=== PATIENT | female | born 2000 | race Caucasian/White ===

== ENCOUNTER → 2024-06-08 | Outpatient (CLI) | payer OTHER | LOC: M OUTALCOH 07:46 | PROVIDERS: ATTEND Psychiatry & Neurology Psychiatry | DX: F10.10 Alcohol abuse, uncomplicated (principal); Z72.0 Tobacco use ==

== ENCOUNTER 2024-06-22 16:00 | Outpatient (RCR) | payer OTHER | END 2024-07-04 | LOC: M OUTALCOH 16:00 | PROVIDERS: ATTEND Psychiatry & Neurology Psychiatry | DX: F10.10 Alcohol abuse, uncomplicated (principal); Z72.0 Tobacco use ==

== ENCOUNTER 2024-08-03 16:00 | Outpatient (RCR) | payer OTHER | END 2024-08-04 | LOC: M OUTALCOH 16:00 | PROVIDERS: ATTEND Psychiatry & Neurology Psychiatry | DX: F10.10 Alcohol abuse, uncomplicated (principal); Z72.0 Tobacco use ==

== ENCOUNTER 2024-08-10 15:07 | Outpatient (RCR) | payer OTHER | END 2024-09-01 | LOC: M OUTALCOH 15:07 | PROVIDERS: ATTEND Psychiatry & Neurology Psychiatry | DX: F10.10 Alcohol abuse, uncomplicated (principal); Z72.0 Tobacco use ==

== ENCOUNTER 2024-09-22 16:00 | Outpatient (RCR) | payer OTHER | END 2024-10-02 | LOC: M OUTALCOH 16:00 | PROVIDERS: ATTEND Psychiatry & Neurology Psychiatry | DX: F10.10 Alcohol abuse, uncomplicated (principal); Z72.0 Tobacco use ==